=== PATIENT | male | born 1965 | race Caucasian/White ===

== ENCOUNTER 2020-01-21 10:06 | Emergency (ER) | payer OTHER ==
--- NOTE | 2020-01-21 10:35 | TELE ---
HPI Do you have fever,cough or shortness of breath?: No - General Reason For Visit: COVID TESTING History Source: Patient Exam Limitations: No Limitations - History of Present Illness 01/21/20 10:33 54 year old male no reported pmhx asymptomatic at this time requesting COVID swab and ab testing. Pt otherwise denies: fevers, chills, syncope, lightheadedness, dizziness, headaches, neck pain, chest pain, shortness of breath, palpitations, back pain, abdominal pain, nausea, vomiting, diarrhea, constipation. *Physical Exam - Physical Exam 01/21/20 10:34 deferred 07/18 no video chat available - Medical Decision Making 01/21/20 10:36 Pt to precede to [facility] for testing To obtain your prescribed COVID testing, go to the [facility] at [address] [place] [address]. Proceed across the parking lot to the GREEN parking spaces with COVID Testing signs next to the Emergency Room entrance. Call [phone] and our team will complete your testing. Thank you for using our Virtual Urgent Care service! Discharge Diagnosis at time of Disposition: Counseled about COVID-19 virus infection - Referrals Follow-up Referral(s): Kendal Peterson [Primary Care Provider] - - Patient Instructions Discharge Instructions: [facility]-Coronavirus Instructions - Discharge Disposition: HOME Condition at time of Disposition: Stable
== END 2020-01-21 10:37 | disposition home or self-care (01) ==
LOC: JVIRT 10:06
DX: Z11.59 Encounter for screening for other viral diseases (principal)
CPT/HCPCS: 36415; 86769; 99441-95; U0003